=== PATIENT | female | born 1980 | race Caucasian/White ===

== ENCOUNTER 2018-12-09 16:55 | Emergency (ER) | payer BC ==
--- NOTE | 2018-12-09 16:58 | PDOC ---
Rapid Medical Evaluation Time Seen by Provider: 12/09/18 16:57 Medical Evaluation: Allergies Allergy/AdvReac Type Severity Reaction Status Date / Time No Known Allergies Allergy Verified 08/27/15 09:39 I have performed a brief in-person evaluation of this patient. The patient presents with a chief complaint of: abdominal pain since yesterday, sent by Asad GONZALEZ r/o jaciel, denies fever, N/V/D Pertinent physical exam findings: marked midline lower abd tenderness, mild RLQ tenderness I have ordered the following: urine, labs, ct The patient will proceed to the ED for further evaluation.
[2018-12-09 17:16] VITALS: TEMP 98.3; BMI 26.6
[2018-12-09 17:51] LABS: BASO % 0.6 % (0-2.0); EOS % 0.8 % (0-4.5); HEMATOCRIT 41.1 % (32.4-45.2); HEMOGLOBIN 13.9 GM/dL (10.7-15.3); LYMPH % 35.6 % (8-40); MCH 32.4 pg (25.7-33.7); MCHC 33.7 g/dl (32.0-36.0); MEAN CELL VOLUME 96.1 fl (80-96); MEAN PLT VOLUME 9.6 fl (7.5-11.1); MONO % 4.5 % (3.8-10.2); NEUT % 58.5 % (42.8-82.8); PLATELET COUNT 222 K/MM3 (134-434); RBC 4.28 M/mm3 (3.60-5.2); RDW 13.2 % (11.6-15.6); WHITE BLOOD COUNT 8.3 K/mm3 (4.0-10.0)
[2018-12-09 18:15] LABS: HCG,QUALITATIVE URINE Negative
[2018-12-09 18:43] LABS: PH,URINE 6.5 (5.0-8.0); URINE APPEARANCE CLEAR; URINE BILIRUBIN NEGATIVE (NEGATIVE); URINE COLOR YELLOW; URINE GLUCOSE (UA) NEGATIVE (NEGATIVE); URINE KETONE NEGATIVE (NEGATIVE); URINE LEUK ESTERASE NEGATIVE (NEGATIVE); URINE NITRITE NEGATIVE (NEGATIVE); URINE PROTEIN NEGATIVE (NEGATIVE); URINE UROBILINOGEN 0.2 mg/dL (0.2-1.0)
[2018-12-09 18:43] LABS: ALBUMIN 3.9 g/dl (3.4-5.0); BILIRUBIN,TOTAL 0.3 mg/dL (0.2-1); CALCIUM 9.2 mg/dL (8.5-10.1); CREATININE 0.6 mg/dL (0.55-1.3); POTASSIUM 4.2 mmol/L (3.5-5.1); TOT PROT 6.7 g/dl (6.4-8.2)
[2018-12-09 19:57] LABS: EPI CELLS 0.2 /HPF (0-5/HPF); URINE RBC 1.1 /hpf (0-4)
--- NOTE | 2018-12-09 21:30 | PDOC ---
History of Present Illness - General Chief Complaint: Pain Stated Complaint: PELVIC/PAIN Time Seen by Provider: 12/09/18 16:57 History Source: Patient Exam Limitations: No Limitations Past History - Past Medical History Allergies/Adverse Reactions: Allergies Allergy/AdvReac Type Severity Reaction Status Date / Time No Known Allergies Allergy Verified 12/09/18 17:12 Home Medications: Ambulatory Orders NK [No Known Home Medication] 12/09/18 Anemia: No Asthma: No Cancer: No Cardiac Disorders: No CVA: No COPD: No CHF: No Dementia: No Diabetes: No GI Disorders: No Disorders: No HTN: No Hypercholesterolemia: No Liver Disease: No Seizures: No Thyroid Disease: No - Surgical History Abdominal Surgery: Yes (keloids removed) Appendectomy: No Cardiac Surgery: No Cholecystectomy: Yes Lung Surgery: No Neurologic Surgery: No Orthopedic Surgery: No - Reproductive History Is Patient Now?: No (#): 3 Para: 3 Therapeutic (s) & number: No Tubal Ligation: No - Immunization History Immunization Up to Date: Yes - Suicide/Smoking/Psychosocial Hx Smoking History: Current every day smoker Have you smoked in the past 12 months: Yes Number of Cigarettes Smoked Daily: 4 Information on smoking cessation initiated: No Hx Alcohol Use: No Drug/Substance Use Hx: No Substance Use Type: None Hx Substance Use Treatment: No *Physical Exam - Vital Signs Last Vital Signs Temp Pulse Resp BP Pulse Ox 98.3 F 57 L 18 111/54 L 100 12/09/18 17:13 12/09/18 20:24 12/09/18 20:24 12/09/18 20:24 12/09/18 20:24 - Physical Exam Respiratory/Chest: positive: Lungs Clear, Normal Breath Sounds. negative: Respiratory Distress Cardiovascular: positive: Regular Rhythm, Regular Rate, S1, S2. negative: Murmur Female Pelvic Exam: negative: adnexal tenderness Gastrointestinal/Abdominal: positive: Normal Bowel Sounds, Tender (along suprapubic site and RLQ), Soft. negative: Distended, Guarding, Rebound Musculoskeletal: negative: CVA Tenderness Integumentary: positive: Normal Color Neurologic: positive: Alert, Normal Mood/Affect ED Treatment Course - LABORATORY CBC & Chemistry Diagram: 12/09/18 17:27 12/09/18 17:27 - ADDITIONAL ORDERS Additional order review: Laboratory Results 12/09/18 12/09/18 17:51 17:27 Sodium 142 Potassium 4.2 Chloride 112 H Carbon Dioxide 26 Anion Gap 4 L BUN 9 Creatinine 0.6 Est GFR (CKD-EPI)AfAm 134.96 Est GFR (CKD-EPI)NonAf 116.44 Random Glucose 85 Calcium 9.2 Total Bilirubin 0.3 AST 13 L ALT 16 Alkaline Phosphatase 48 Total Protein 6.7 Albumin 3.9 Lipase 209 Urine Color Yellow Urine Appearance Clear Urine pH 6.5 Ur Specific [place] 1.002 L Urine Protein Negative Urine Glucose (UA) Negative Urine Ketones Negative Urine Blood 2+ H Urine Nitrite Negative Urine Bilirubin Negative Urine Urobilinogen 0.2 Ur Leukocyte Esterase Negative Urine RBC (Auto) 1.1 U Epithel Cells (Auto) 0.2 Urine HCG, Qual Negative 12/09/18 17:27 RBC 4.28 MCV 96.1 H MCHC 33.7 RDW 13.2 D MPV 9.6 D Neutrophils % 58.5 Lymphocytes % 35.6 D Monocytes % 4.5 Eosinophils % 0.8 Basophils % 0.6 Medical Decision Making - Medical Decision Making 38 y/o F hx of , cholecystectomy presents with suprapubic pain x 1 year , worsening yesterday. Denies fever, chills, sob, cp, n/v/d, urinary complaints , vaginal discharge. LNMP ended 2 days ago. Labs unremarkable UA shows 2+ blood (likely as finished menstrual cycle recently) CT A/P shows no evidence of appendicitis or other acute findings Patient refused pain meds while here Stable for dc 12/09/18 21:25 *DC/Admit/Observation/Transfer Diagnosis at time of Disposition: Suprapubic abdominal pain - Discharge Dispostion Disposition: HOME Condition at time of disposition: Stable Decision to Admit order: No - Referrals - Patient Instructions Printed Discharge Instructions: DI for Abdominal Pain-Adult Additional Instructions: Thank you for choosing [facility]. It was a pleasure taking care of you. Your labs and CT scan of abdomen/pelvis were unremarkable Please follow-up with your doctor in 2 days Return to the Emergency Department if your symptoms worsen or persist or have other concerning symptoms. - Post Discharge Activity
[2018-12-09 21:56] VITALS: BP 106/60; PULSE 56
== END 2018-12-09 21:56 | disposition home or self-care (01) ==
LOC: JER 16:55
DX: R10.2 Pelvic and perineal pain (principal)
CPT/HCPCS: 36415; 74176-TC; 80053; 81003; 83690; 84703; 85025; 87086; 99283-25